=== PATIENT | female | born 1985 | race Caucasian/White ===

== ENCOUNTER 2018-04-02 08:08 | Observation (INO) | payer OTHER ==
[2018-04-02] MEDS ORDERED: ONDANSETRON ODT 8 MG TAB SL ONE (08:24)
[2018-04-02] MEDS ORDERED: SODIUM CHLORIDE 0.9% 1000ML 1,000 ML IVS ONE (08:24)
[2018-04-02] MEDS ORDERED: KETOROLAC TROMETHAMINE INJ 30 MG/ML VIAL IM ONE (08:26)
[2018-04-02] MEDS ORDERED: MORPHINE SULFATE INJ 10 MG/ML VIAL IV ONE ×2 (09:42→12:34)
--- NOTE | 2018-04-02 09:50 | RAD ---
EXAM: KUB CLINICAL INDICATION: 32-year-old female with flank pain and dysuria. Single supine view of the abdomen was obtained. COMPARISON: None. FINDINGS: Gas is seen within normal caliber small and large bowel. No free air is identified. There are no abnormal calcifications. The osseous structures are within normal limits. Few pelvic calcifications are noted which may represent phleboliths. The possibility of calculus cannot be completely excluded. IMPRESSION: 1. Nonspecific abdominal bowel gas pattern within normal limits. 2. Calculi present within the dependent pelvis may be secondary to phleboliths, however the possibility of calculus cannot be excluded. Electronically signed by: Kathie Webb MD 04/02/2018 9:49 AM CDT
[2018-04-02] MEDS ORDERED: NITROFURANTOIN MONOHYDRATE MAC 100 MG CAP PO ONE (11:20)
[2018-04-02] MEDS ORDERED: CIPROFLOXACIN 500 MG TAB PO ONE (11:20)
[2018-04-02] MEDS ORDERED: HYDROcodone 7.5MG/APAP 325MG 1 EA TAB PO ONE (11:58)
--- NOTE | 2018-04-02 12:24 | CT ---
EXAM DESCRIPTION: Abdoment/Pelvis w/o Contrast CLINICAL HISTORY: suspect right sided kidney stone COMPARISON: None Available TECHNIQUE: Contiguous axial images of the abdomen and pelvis were obtained followed by reconstruction images. This exam was performed according to our departmental dose-optimization program, which includes automated exposure control, adjustment of the mA and/or kV according to patient size and/or use of iterative reconstruction technique. FINDINGS: Patient is status post cholecystectomy. The right kidney demonstrates hydronephrosis due to of 2 mm stone at the distal ureter. There are other nonobstructing stones within both kidneys. Calcifications within the pelvis compatible with phleboliths. The liver, spleen, pancreas are within normal limits. Adrenal glands are within normal limits. Aorta is of normal caliber and tapering. There is no free fluid in the abdomen or pelvis. There is no bowel obstruction. There is no stranding of the mesenteric fat to suggest an inflammatory response. The appendix is within normal limits. There is no pericecal inflammation. Mild dilatation of the terminal ileum compatible a focal ileus. IMPRESSION: Right-sided hydronephrosis due to a 2 mm stone within the distal ureter. Other nonobstructing stones within both kidneys. Electronically signed by: Daniel Goldman MD 04/02/2018 12:23 PM CDT
--- NOTE | 2018-04-02 12:39 | ED.PDOC ---
History of Present Illness - General Chief Complaint: Problem Stated Complaint: R flank discomfort, dysuria Time Seen by Provider: 04/02/18 08:24 Source: patient Exam Limitations: no limitations - History of Present Illness Initial Comments: the patient's a 32-year-old female presenting to the emergency room secondary to the acute onset of pain in her right flankstarting at 545 this morning. Pain is associated with radiation down to her anterior right abdomen. She has been having some UTI symptoms last week. No fevers. She has had frequency and very mild dysuria. No blood in the urine. No history of any kidney stones. The patient did have a couple of episodes of vomiting with the pain at its worst this morning. She denies currently being on any antibiotics. Timing/Duration: 1-3 hours Severity: severe Improving Factors: nothing Worsening Factors: movement Associated Symptoms: diaphoresis, loss of appetite, nausea/vomiting Allergies/Adverse Reactions: Allergies Amoxicillin [From Augmentin] Allergy (Verified 04/02/18 08:24) Unknown Cephalexin [From Keflex] Allergy (Verified 04/02/18 08:24) Unknown Clavulanic Acid [From Augmentin] Allergy (Verified 04/02/18 08:24) Unknown Erythromycin Allergy (Verified 04/02/18 08:24) Unknown Sulfamethoxazole w/Trimethoprim [From Bactrim] Allergy (Verified 04/02/18 08:24) Unknown Home Medications: Ambulatory Orders NK [NK] 04/02/18 Review of Systems - Review of Systems Constitutional: States: malaise EENTM: States: no symptoms reported Respiratory: States: no symptoms reported Cardiology: States: no symptoms reported Gastrointestinal/Abdominal: States: abdominal pain, nausea, vomiting Genitourinary: States: dysuria, frequency, pain Musculoskeletal: States: back pain Skin: States: no symptoms reported Neurological: States: no symptoms reported Endocrine: States: no symptoms reported All other Systems: No Change from Baseline Past Medical History (General) - Patient Medical History Hx Stroke: No Hx Asthma: Yes Hx Congestive Heart Failure: No Hx Diabetes: No - Vaccination History Hx Influenza Vaccination: Yes - 2017 Hx Pneumococcal Vaccination: No - Social History Hx Tobacco Use: No - Female History Patient is a Female of Child Bearing Age (10 -59 yrs old): Yes Patient : No Family Medical History - Family History Mother Living Status: Still Living Hx Family Congestive Heart Failure: Yes Hx Family Hypertension: Yes Hx Cardiac Disease: Yes Hx Family;Other: Mom has COPD Physical Exam - Physical Exam General Appearance: Alert, Restless, Other - the patient is obviously very uncomfortable Eye Exam: bilateral normal Ears, Nose, Throat: hearing grossly normal, normal ENT inspection Neck: full range of motion, supple Respiratory: lungs clear, normal breath sounds, no respiratory distress, no accessory muscle use Cardiovascular/Chest: normal peripheral pulses, regular rate, rhythm, no edema Peripheral Pulses: radial,right: 2+, radial,left: 2+, dorsalis pedis,right: 2+, dorsalis pedis,left: 2+ Gastrointestinal/Abdominal: non tender, soft Rectal Exam: deferred Back Exam: no vertebral tenderness, CVA tenderness (R) Extremity: non-tender, normal inspection, no pedal edema, normal capillary refill Neurologic: supervisor roving II-XII nml as tested, alert, normal mood/affect, oriented x 3 Skin Exam: normal color - multiple tattoos Comments: Vital Signs - 24 hr 04/02/18 04/02/18 08:15 12:03 Temperature 98.7 F Pulse Rate [ 75 86 Right Radial] Respiratory 20 20 Rate Blood Pressure 108/52 124/75 [Right Arm] O2 Sat by Pulse 99 Oximetry Progress - Progress Progress: 04/02/18 12:40 the patient's a 32-year-old female presenting with a urinary tract infection as well as a concurrent right sided ureterolithiasis causing some hydronephrosis. I believe she simply started passing the stone early this morning. I do not believe that she has pyelonephritis yet. The patient has received a dose of oral ciprofloxacin and Macrobid. Urine cultures being performed. She has received a liter of IV fluids. She is requiring some fairly significant pain medications to help with pain control, nausea control and passage of the stone. I'm going to give her a dose of valium as well. She has had a dose of Toradol as well. Admit for continued hydration, continued antibiotics, and continued pain control. If the patient fails to pass the stone over the next 24 hours then it may be worth a referral for lithotripsy given the background of infection. No evidence of sepsis at this time. CBC and CMP are pending at this time.Flomax is being avoided for the potential of a sulfonamide reaction. This probability however is low. 04/02/18 12:43 04/02/18 12:44 - Results/Orders Results/Orders: 04/02/18 09:38 URINE CULTURE W/COLONY COUNT Stat 04/02/18 12:37 COMPLETE METABOLIC PROFILE Stat CBC (AUTOMATED) W/AUTO DIFF Stat Laboratory Results - last 24 hr 04/02/18 04/02/18 05:00 09:38 Serum HCG, Qual Negative Urine Color [place] H Urine Appearance Sl cloudy Urine pH 5.0 Ur Specific [place] 1.020 Urine Protein >=300 H Urine Glucose (UA) 250 H Urine Ketones 15 H Urine Blood Moderate H Urine Nitrite Positive H Urine Bilirubin Small H Urine Urobilinogen >= 8.0 H Ur Leukocyte Esterase Large H Urine RBC Tntc H Urine WBC Obscured by rbc's H Ur Epithelial Cells 0 Urine Bacteria Obscured by rbc's H Urine HCG, Qual Cancelled Departure - Departure Clinical Impression: Ureterolithiasis Urinary tract infection Qualifiers: Urinary tract infection type: acute cystitis Hematuria presence: with hematuria Qualified Code(s): N30.01 - Acute cystitis with hematuria Hydronephrosis Qualifiers: Hydronephrosis type: with ureteral calculous obstruction Qualified Code(s): N13.2 - Hydronephrosis with renal and ureteral calculous obstruction Disposition: Admit Patient Condition: Fair Departure Forms: ED Discharge - Pt. Copy, Patient Portal Self Enrollment Referrals: Lobito Rosales MD [Primary Care Provider] - 1-2 Weeks Home Medications: Ambulatory Orders NK [NK] 04/02/18 Decision To Admit - Decistion To Admit Decision to Admit Reason: Medical Nature Decision to Admit Date: 04/02/18 Decision to Admit Time: 12:45
[2018-04-02] MEDS ORDERED: diazePAM 5 MG TAB PO ONE (12:42)
--- NOTE | 2018-04-02 13:13 | HP ---
SUPERVISING PHYSICIAN: Chapo Ruiz M.D. CHIEF COMPLAINT: Right flank pain and dysuria. HISTORY OF PRESENT ILLNESS: Ms. Fuentes is a 32 year-old female patient that presented to the Emergency Room today due to the acute onset of pain in her right flank around 5:45 this morning. She noted that the pain was radiating down into her anterior right abdomen. She felt like she had been having urinary tract infection symptoms over the last 3 or 4 days and had been taking Azo for some mild dysuria and increased frequency. She denied any rikki blood in her urine and has never passed a kidney stone that she knows of. Initially in the Emergency Room she did have an episode of emesis associated with severe pain. A CT of her abdomen and pelvis without contrast indicated she had a right sided hydronephrosis due to a 2 mm stone within the distal ureter. There was also mentioned nonobstructing stones within both kidneys. She was given fluids but was unable to obtain any significant pain relief without IV morphine. Given that she had a urinary tract infection, she was started on ciprofloxacin and Macrobid in the E. R. initially. She was going to be treated as an outpatient, however, the patient was unable to get any significant pain relief without any IV medications to include morphine, and such is now going to be placed in Observation for medical expulsive therapy along with pain control. The patient is placed in Observation in stable condition. PAST MEDICAL HISTORY: 1. Asthma. 2. Seasonal allergies. 3. Migraines. 4. Insomnia. PAST SURGICAL HISTORY: 1. Cholecystectomy. 2. Umbilical hernia repair. CURRENT MEDICATIONS: ALLERGIES: MULTIPLE ALLERGIES LISTED TO INCLUDE AMOXICILLIN, KEFLEX, ERYTHROMYCIN AND BACTRIM. FAMILY HISTORY: Significant for congestive heart failure and hypertension. 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 She is and has 3 children. She does not smoke and rarely drinks alcohol. Denies any illicit drug use. REVIEW OF SYSTEMS: CONSTITUTIONAL: Denies any fevers, chills, general malaise. HEENT: Denies any headaches, vision changes, nasal congestion, sore throat or ear aches. RESPIRATORY: Denies any shortness of breath, wheezing or coughing. CARDIOVASCULAR: Denies any chest pains, palpitations, syncopal episodes or peripheral edema. GASTROINTESTINAL: Abdominal pain, nausea and vomiting as noted in History of Present Illness. MUSCULOSKELETAL: Positive for CVA tenderness on the right side. NEUROLOGIC: She denies any seizures, ataxia or other neurological deficits. PHYSICAL EXAMINATION: VITAL SIGNS: Temperature 98.8, pulse 91, blood pressure 111/65, respirations 20 , satting 97% on room air. Admission weight 50.6 kg. GENERAL: On admission to the Medical/Surgical floor, the patient appears to be comfortable in no acute distress. She is alert. HEENT: Tympanic membranes are clear bilaterally. Oropharynx is pink and moist without any lesions. The patient has a nasal ring in place. NECK: Supple, non-tender with full range of motion. No jugular venous distention. CHEST: Lungs are clear to auscultation without any rhonchi, wheezing or rales. CARDIOVASCULAR: Regular rate and rhythm without appreciable murmurs, gallops, or rubs. ABDOMEN: Soft with no rebound tenderness. Positive bowel sounds. BACK: No vertebral tenderness. There is noted CVA tenderness on the right side. EXTREMITIES: No clubbing, cyanosis or edema. NEUROLOGIC: Cranial nerves II-XII are grossly intact. She is alert and oriented times three. INTEGUMENT: Multiple tattoos noted to the upper extremities. LABORATORY: CBC shows a normal white count at 9,900, hemoglobin 13.3, hematocrit 40.0, platelet count 246,000. Differential does show an early left shift. Chemistries show normal electrolytes with BUN 15, creatinine 0.82. Liver functions are all within normal limits. Serum HCG was negative. Urinalysis showed orange urine secondary to Azo. Microscopic revealed large too numerous to count RBCs and WBCs are obscured by RBCs as well as bacteria. The dipstick was chemically altered secondary to Azo. MICROBIOLOGY: Urine culture is pending. RADIOLOGY: Initially she had a KUB in the E. R. which showed per radiology interpretation nonspecific abdominal bowel gas pattern within normal limits. There were calculi present within the dependent pelvis which could be secondary to phleboliths, however the possibility of calculus could not be ruled out. This was followed-up with a CT of the abdomen and pelvis without contrast and per radiology interpretation there was note of right sided hydronephrosis due to a 2 mm stone within the distal ureter as well as other nonobstructing stones within both kidneys. Please see that report for full details. ASSESSMENT: 1. Right sided ureteral lithiasis with hydronephrosis due to a 2 mm stone within the distal ureter. 2. Acute cystitis with no obvious signs of pyelonephritis, not having previously been on antibiotic therapy. 3. Asthma. 4. Seasonal allergies. 5. Insomnia. 6. Migraines. PLAN: The patient is going to be placed in Observation for medical expulsive therapy. Will start on some IV fluids with D5 half normal saline with 20 of potassium at 125. I will go ahead and give her Toradol scheduled 15 mg every 6 hours. She was started on ciprofloxacin and Macrobid. I will continue with ciprofloxacin 500 mg b.i.d. with anticipation of hopefully discharging tomorrow and culture is pending. She does have an allergy to sulfonamides but is not sure of the reaction and it was noted as a young child. Will try Flomax and watch this cautiously as consideration for cross reactivity. Will also start her on Pyridium at 200 mg t.i.d. She will be given pain management with again Toradol and morphine as well as antiemetics to include Zofran and Phenergan as needed. Will strain her urine in efforts to catch the stone. Should we be successful, the stone will be sent for analysis. Will anticipate discharge tomorrow once the patient has good pain control on oral medication. Should she continue to show worsening symptoms, certainly will consider consultation with Urology, but given that she has a less than 2 mm stone and it is near passage, will continue to medically manage her conservatively with medical expulsive therapy. Until clinically improved, will continue to monitor and treat appropriately. Once discharged she will need followup with Dr. Rosales, her primary care provider. #[id number] [facility]
[2018-04-02] MEDS ORDERED: ACETAMINOPHEN 325 MG TAB PO PRN (13:35)
[2018-04-02] MEDS ORDERED: TAMSULOSIN 0.4 MG CAP PO ONE (13:40)
[2018-04-02] MEDS ORDERED: IV SET AND CAP CHANGE INJ INJ SCH (14:00)
[2018-04-02] MEDS ORDERED: KETOROLAC TROMETHAMINE INJ 30 MG/ML VIAL IV SCH (14:00)
[2018-04-02] MEDS: KCL 20MEQ/D5 1/2NS 1,000 ML IVS PRN ×2 (14:11→23:03)
[2018-04-02] MEDS: PHENAZOPYRIDINE HCL 200 MG TAB PO SCH ×3 (14:15→20:49)
[2018-04-02] MEDS: MORPHINE SULFATE INJ 10 MG/ML VIAL IV PRN (15:27)
[2018-04-02] MEDS: ONDANSETRON INJ 4 MG/2 ML VIAL IV PRN (16:42)
[2018-04-02] MEDS ORDERED: CIPROFLOXACIN 500 MG TAB ONE (18:48)
[2018-04-02] MEDS: KETOROLAC TROMETHAMINE INJ 30 MG/ML VIAL IV SCH (19:37)
[2018-04-02] MEDS: CIPROFLOXACIN 500 MG TAB PO SCH (20:49)
--- NOTE | 2018-04-02 23:44 | PCM.CORE ---
Physician DVT/VTE - Nurse DVT Assessment & Total For Women Only. Each Risk Factor Represents 1 Point: Oral Contraceptions or hormone replacement therapy DVT Assessment Score: 1 - 0-1 Low Risk Treatments: Early Ambulation, Low Risk no further treatment or intervention needed
[2018-04-03] MEDS: KETOROLAC TROMETHAMINE INJ 30 MG/ML VIAL IV SCH ×4 (01:32→20:10)
[2018-04-03] MEDS: SODIUM CHLORIDE 0.9% (FLUSH) 10 ML SYG IV PRN ×3 (01:32→20:09)
[2018-04-03] MEDS: KCL 20MEQ/D5 1/2NS 1,000 ML IVS PRN ×3 (07:26→23:50)
[2018-04-03] MEDS: PHENAZOPYRIDINE HCL 200 MG TAB PO SCH ×3 (09:53→20:30)
[2018-04-03] MEDS: CIPROFLOXACIN 500 MG TAB PO SCH ×2 (09:54→20:30)
[2018-04-03] MEDS: BIFIDOBACTERIUM INFANTIS 4 MG CAP PO SCH (09:54)
[2018-04-03] MEDS: MORPHINE SULFATE INJ 10 MG/ML VIAL IV PRN ×3 (09:54→13:56)
[2018-04-03] MEDS ORDERED: KETOROLAC TROMETHAMINE INJ 30 MG/ML VIAL IV SCH (11:00)
[2018-04-03] MEDS ORDERED: ACETAMINOPHEN-CAFF-BUTALBITAL 1 EA TAB PO PRN (11:23)
[2018-04-03] MEDS: TAMSULOSIN 0.4 MG CAP PO SCH (11:26)
[2018-04-03] MEDS ORDERED: PANTOPRAZOLE SODIUM IV 40 MG VIAL ONE (11:29)
[2018-04-03] MEDS ORDERED: PANTOPRAZOLE SODIUM IV 40 MG VIAL IV SCH (12:00)
[2018-04-03] MEDS: ONDANSETRON INJ 4 MG/2 ML VIAL IV PRN (16:31)
--- NOTE | 2018-04-03 23:02 | PN ---
DATE: 04/03/18 SUPERVISING PHYSICIAN: Chapo Ruiz M.D. SUBJECTIVE: The patient is resting in bed. Notes that she still has a significant amount of pain and is requiring morphine in addition to Toradol. She notes that the pain has now moved down further into her pelvic area. She has not had any nausea or vomiting and has remained afebrile. The patient has had a mild headache but respond to Tylenol and Fioricet. OBJECTIVE: VITAL SIGNS: Temperature 96.3, pulse 83, blood pressure 104/70, respirations 16, satting 96% on room air. Weight 50.7 kg. CHEST: Lungs are clear to auscultation. HEART: Regular rate and rhythm. ABDOMEN: Soft, non- tender with positive bowel sounds. BACK: She has no CVA tenderness on the right now but notes that the pain is down into her pelvic area. ABDOMEN: Soft but non-tender on palpation. Bowel sounds are present. EXTREMITIES: No clubbing, cyanosis or edema. NEUROLOGIC: She is alert and oriented times three. No laboratory was repeated today. ASSESSMENT: 1. Right sided ureteral lithiasis with hydronephrosis due to a 2 mm stone within the distal ureter showing slow clinical response to medical expulsive therapy and requiring additional ongoing IV pain management. 2. Acute cystitis with no signs of pyelonephritis and not previously being on antibiotics with the patient having a long history of multiple urinary tract infections currently on ciprofloxacin. 3. Asthma. 4. Seasonal allergies. 5. Insomnia. 6. Migraines. PLAN: The patient will continue with current plan with IV fluids, Flomax, morphine, Zofran and Pyridium in efforts to further moving the stone. She has been encouraged to get up and walk around as much as possible. Should the stone move and her pain decrease to a degree that she can go home, hopefully will be able to discharge either later today or tomorrow morning. Should she continue to show a significant amount of pain despite current therapy, will need to repeat labs in the morning to include at least a CBC and a BMP to recheck renal function. Will continue to monitor her output closely. I will keep her on Toradol 30 mg every 6 hours scheduled for another 4 doses. Will await culture results to further target antibiotic therapy. Currently she will remain on ciprofloxacin until that sensitivity report is available. Until discharge, will continue to monitor and treat appropriately. Once discharged, she will need close clinical followup with her primary doctor who is Dr. Rosales. #[id number] [facility]
[2018-04-04] MEDS: KETOROLAC TROMETHAMINE INJ 30 MG/ML VIAL IV SCH ×2 (01:51→07:33)
[2018-04-04] MEDS: SODIUM CHLORIDE 0.9% (FLUSH) 10 ML SYG IV PRN (01:51)
[2018-04-04 06:09] VITALS: TEMP 98.4
[2018-04-04] MEDS ORDERED: PANTOPRAZOLE SODIUM IV 40 MG VIAL IV SCH ×2 (06:30→10:47)
[2018-04-04] MEDS: KCL 20MEQ/D5 1/2NS 1,000 ML IVS PRN (08:24)
[2018-04-04] MEDS: PHENAZOPYRIDINE HCL 200 MG TAB PO SCH (08:25)
[2018-04-04] MEDS: BIFIDOBACTERIUM INFANTIS 4 MG CAP PO SCH (08:25)
[2018-04-04] MEDS: TAMSULOSIN 0.4 MG CAP PO SCH (08:25)
[2018-04-04] MEDS: CIPROFLOXACIN 500 MG TAB PO SCH (08:25)
[2018-04-04] MEDS ORDERED: HYDROcodone 5MG/APAP 325MG 1 EA TAB ONE (09:43)
[2018-04-04] MEDS ORDERED: HYDROcodone 5MG/APAP 325MG 1 EA TAB PO ONE (09:47)
[2018-04-04 10:31] VITALS: BP 102/69; O2SAT 97
--- NOTE | 2018-04-04 14:09 | DS ---
SUPERVISING PHYSICIAN: Orlando Cornell MD ADMISSION DIAGNOSIS: 1. Right sided ureteral stone with mild hydronephrosis. 2. Acute cystitis with no sign of pyelonephritis. 3. Asthma. 4. Seasonal allergies. 5. Insomnia. 6. Migraines. DISCHARGE DIAGNOSIS: 1. Right sided ureteral stone with mild hydronephrosis. 2. Acute cystitis with no sign of pyelonephritis. 3. Asthma. 4. Seasonal allergies. 5. Insomnia. 6. Migraines. HOSPITAL COURSE: This is a 32-year-old female who presented to the Emergency Room with acute onset of pain in her right flank the morning of admission. She had never had that kind of pain before. It was radiating down to the anterior right abdomen. She has had a history of frequent urinary tract infections and had symptoms of urinary tract infection for the last four days, but never had the flank pain that she had on admission. She was seen in the Emergency Room and had a CT of the abdomen and pelvis which revealed a 2 mm stone in the distal ureter with some mild right sided hydronephrosis. There were multiple stones that were nonobstructing in both kidneys as well. She was given IV fluids and pain medications, but the pain medications were not giving significant relief and she was referred for admission. Once admitted, she was placed on Toradol, Flomax as well as Cipro. Over the next 48 hours, she did improve though still was having some pain. She did not feel like she had passed the stone as of yet, but the pain was tolerable and I got a prescription from Dr. Ruiz for [place] p.r.n. for pain. She was free of any fever and her labs improved, therefore, she was discharged in stable condition on 04/04/18. DIET: As per usual diet. ACTIVITY: As tolerated. FOLLOWUP: Followup with Dr. Rosales in one to two weeks. DISCHARGE MEDICATIONS: 1. [place] 5/325 every 6 hours p.r.n. for pain, 5 days worth. 2. Macrobid 100 mg b.i.d. 3. Flomax 0.4 mg p.o. daily for 10 days. [facility][id number] [facility]
[2018-04-05] MEDS ORDERED: PANTOPRAZOLE SODIUM TAB 40 MG PO SCH (06:30)
== END 2018-04-04 10:37 | disposition home or self-care (01) ==
LOC: ER 08:08 → MS 13:11 → INTOOBSV 13:11
PROVIDERS: ADMIT Nurse Practitioner Family; ATTEND Nurse Practitioner
DX: N13.2 Hydronephrosis with renal and ureteral calculous obstruction (principal); N30.01 Acute cystitis with hematuria; J45.909 Unspecified asthma, uncomplicated; G47.00 Insomnia, unspecified; G43.909 Migraine, unspecified, not intractable, without status migrainosus; R11.2 Nausea with vomiting, unspecified; Z88.0 Allergy status to penicillin; Z88.3 Allergy status to other anti-infective agents
CPT/HCPCS: 96375 ×2; 96376 ×4; J1885 ×9; J2270 ×6; J2405 ×2; J7030; 80048; 80053; 87086; 36415 ×2; 87186; 81001; 85025 ×2; 84703; 87088 ×2; 74018; 74176; 99285; 96361; 96372; 96374

== ENCOUNTER 2018-04-07 23:15 | Emergency (ER) | payer OTHER ==
[2018-04-07 23:38] VITALS: O2SAT 98
[2018-04-08] MEDS ORDERED: KETOROLAC TROMETHAMINE INJ 30 MG/ML VIAL ONE (00:01)
--- NOTE | 2018-04-08 00:05 | ED.PDOC ---
History of Present Illness - General Chief Complaint: Problem Stated Complaint: Rt Flank Pain Time Seen by Provider: 04/08/18 00:05 Source: patient Exam Limitations: no limitations - History of Present Illness Initial Comments: Maki Fuentes 32 y/o female diagnosed with right mid ureteral calculus 06 April 2018 with flankpain and was sent home after pain went away advised TCB if pain recurs and had again constant sharp right flank pain tonight. Timing/Duration: this evening Quality: sharpness Onset Location: right flank Radiation: none Activites at Onset: none Prior abdominal problems: similar symptoms Sexual intercourse history: single partner Improving Factors: nothing Worsening Factors: nothing Associated Symptoms: other - see hpi Allergies/Adverse Reactions: Allergies Amoxicillin [From Augmentin] Allergy (Verified 04/02/18 08:24) Unknown Cephalexin [From Keflex] Allergy (Verified 04/02/18 08:24) Unknown Clavulanic Acid [From Augmentin] Allergy (Verified 04/02/18 08:24) Unknown Erythromycin Allergy (Verified 04/02/18 08:24) Unknown Sulfamethoxazole w/Trimethoprim [From Bactrim] Allergy (Verified 04/02/18 08:24) Unknown Home Medications: Ambulatory Orders HYDROcodone 5MG/APAP 325MG [[place] 5/325] 1 ea PO Q6H 5 Days #20 tab 04/04/18 Nitrofurantoin Monohydrate Mac [Macrobid] 100 mg PO BID 7 Days #14 capsule 04/04 Tamsulosin [Flomax] 0.4 mg PO DAILY #10 cap 04/04/18 Review of Systems - Review of Systems Constitutional: States: no symptoms reported EENTM: States: no symptoms reported Respiratory: States: no symptoms reported Cardiology: States: no symptoms reported Gastrointestinal/Abdominal: States: no symptoms reported Genitourinary: States: see HPI All other Systems: Reviewed and Negative, No Change from Baseline Past Medical History (General) - Patient Medical History Hx Seizures: No Hx Stroke: No Hx Dementia: No Hx Asthma: Yes Hx of COPD: No Hx Cardiac Disorders: No Hx Congestive Heart Failure: No Hx Pacemaker: No Hx Hypertension: No Hx Thyroid Disease: No Hx Diabetes: No Hx Gastroesophageal Reflux: No Hx Renal Disease: No Hx Cancer: No Hx of HIV: No Hx Hepatitis C: No Hx MRSA: Yes MRSA Source:: Boil Surgical History: cholecystectomy, other - Vaccination History Hx Tetanus, Diphtheria Vaccination: Yes Hx Influenza Vaccination: Yes Hx Pneumococcal Vaccination: No Immunizations Up to Date: Yes - Social History Hx Tobacco Use: No Hx Alcohol Use: No Hx Substance Use: No Hx Substance Use Treatment: No Hx Depression: No Feels Threatened In Home Enviroment: No Feels Threatened In a Relationship: No Hx Physical Abuse: No Hx Emotional Abuse: No Hx Suspected Abuse: No - Activities of Daily Living Hospice Agency (if applicable):: None - Female History Patient is a Female of Child Bearing Age (10 -59 yrs old): Yes Hx Last Menstrual Period: 03/24/18 Patient : No - Triage Comment ED Triage Comment: Pt states that she has rt flank pain that has been ongoing since Wednesday morning and is getting worse. Pt confirms blood in urine and states she was diagnosed with a UTI and kidney stones on Wednesday morning. Pt taking [place] 5/325 for pain at home and states it is not helping at this time. Family Medical History - Family History Mother Living Status: Still Living Hx Family Congestive Heart Failure: Yes Hx Family Hypertension: Yes Hx Cardiac Disease: Yes Hx Family;Other: Mom has COPD Physical Exam - Physical Exam General Appearance: Agitated, Anxious, No apparent distress Eyes, Ears, Nose, Throat Exam: normal ENT inspection Neck: supple Cardiovascular/Respiratory: regular rate, rhythm, no M/R/G, normal peripheral pulses, normal breath sounds Gastrointestinal/Abdominal: normal bowel sounds, non tender, soft, no organomegaly Back Exam: normal inspection, no vertebral tenderness, CVA tenderness (R) Extremity: no pedal edema, no calf tenderness Neurologic: alert, oriented x 3 Skin Exam: normal color, warm/dry Lymphatic: no adenopathy Progress - Progress Progress: 04/08/18 00:24 Vital Signs - 8 hr 04/07/18 23:32 Temperature 99.8 F H Pulse Rate [ 89 Monitor] Respiratory 18 Rate Blood Pressure 122/77 [Right Arm] O2 Sat by Pulse 98 Oximetry 04/08/18 02:03 D/W Dr. Zenon Elise-Urologist -[place] will see patient in am at his office 08 April 2018 04/08/18 02:04 - Results/Orders Results/Orders: 04/08/18 00:20 Hold Metformin x 48Hrs [id number] 04/08/18 01:06 Sodium Chloride 0.9% 1000ML [Ns 1000 ml] 1,000 ml IVS ONCE 04/08/18 01:16 URINALYSIS Stat 04/08/18 01:53 HYDROcodone 7.5MG/APAP 325MG [[place] 7.5/325] 1 ea PO ONCE ONE Ketorolac Tromethamine Inj [Toradol Inj] 30 mg IM ONCE ONE Laboratory Results - last 24 hr 04/08/18 04/08/18 04/08/18 00:06 00:06 00:06 WBC 10.3 RBC 4.56 Hgb 13.3 Hct 39.6 MCV 86.9 MCH 29.2 MCHC 33.6 RDW 13.8 Plt Count 239 MPV 7.7 Absolute Neuts (auto) 8.10 H Absolute Lymphs (auto) 1.70 Absolute Monos (auto) 0.50 Absolute Eos (auto) 0.00 Absolute Basos (auto) 0.00 Neutrophils % 78.3 H Lymphocytes % 16.0 L Monocytes % 5.1 Eosinophils % 0.3 L Basophils % 0.3 Sodium 139 Potassium 4.5 Chloride 106 Carbon Dioxide 25 Anion Gap 12.5 BUN 21 H Creatinine 0.82 BUN/Creatinine Ratio 25.6 H Random Glucose 102 Serum Osmolality 280.7 Calcium 9.1 Total Bilirubin 0.4 AST 27 ALT 40 Alkaline Phosphatase 49 Serum Total Protein 7.6 Albumin 4.6 Globulin 3.0 Albumin/Globulin Ratio 1.5 Urine HCG, Qual Urine Opiates Screen Negative Urine Barbiturates Negative Ur Phencyclidine Scrn Negative U Amphetamin/Meth Scrn Negative U Benzodiazepines Scrn Positive H U Cocaine Metab Screen Negative U Cannabinoids Screen Negative 04/08/18 00:06 WBC RBC Hgb Hct MCV MCH MCHC RDW Plt Count MPV Absolute Neuts (auto) Absolute Lymphs (auto) Absolute Monos (auto) Absolute Eos (auto) Absolute Basos (auto) Neutrophils % Lymphocytes % Monocytes % Eosinophils % Basophils % Sodium Potassium Chloride Carbon Dioxide Anion Gap BUN Creatinine BUN/Creatinine Ratio Random Glucose Serum Osmolality Calcium Total Bilirubin AST ALT Alkaline Phosphatase Serum Total Protein Albumin Globulin Albumin/Globulin Ratio Urine HCG, Qual Negative Urine Opiates Screen Urine Barbiturates Ur Phencyclidine Scrn U Amphetamin/Meth Scrn U Benzodiazepines Scrn U Cocaine Metab Screen U Cannabinoids Screen - EKG/XRAY/CT CT Ordered: Yes - Abd/P-right ureteral calculus UVJ same position CT Interpretation Call Back: No Departure - Departure Clinical Impression: Right distal ureteral calculus, Acute flank pain Time of Disposition: 02:56 Disposition: Discharge to Home or Self Care Condition: Fair Departure Forms: ED Discharge - Pt. Copy, Patient Portal Self Enrollment Diet: other - Drink extra fluids Referrals: Lobito Rosales MD [Primary Care Provider] - 1-2 Weeks Home Medications: Ambulatory Orders HYDROcodone 5MG/APAP 325MG [[place] 5/325] 1 ea PO Q6H 5 Days #20 tab 04/04/18 Nitrofurantoin Monohydrate Mac [Macrobid] 100 mg PO BID 7 Days #14 capsule 04/04 Tamsulosin [Flomax] 0.4 mg PO DAILY #10 cap 04/04/18 Additional Instructions: Call up Urologist Dr. Arroyo office in the morning 08 April 2018 [facility]-[address] [place] [address]. [place], [place] Conor. [address]
[2018-04-08] MEDS ORDERED: LACTATED RINGERS 1,000 ML IVS ONE (00:06)
[2018-04-08] MEDS ORDERED: KETOROLAC TROMETHAMINE INJ 30 MG/ML VIAL IV ONE (00:06)
[2018-04-08] MEDS ORDERED: HYDROcodone 7.5MG/APAP 325MG 1 EA TAB PO ONE ×2 (00:18→01:53)
[2018-04-08] MEDS ORDERED: TAMSULOSIN 0.4 MG CAP PO ONE (00:18)
[2018-04-08] MEDS ORDERED: MORPHINE SULFATE INJ 10 MG/ML VIAL IV ONE ×2 (00:18→01:06)
[2018-04-08] MEDS ORDERED: PROMETHAZINE HCL INJ 25 MG/ML VIAL IM ONE (00:21)
[2018-04-08] MEDS ORDERED: SODIUM CHLORIDE 0.9% 1000ML 1,000 ML IVS ONE (01:06)
--- NOTE | 2018-04-08 01:23 | CT ---
CT abdomen and pelvis with contrast on 04/08/2018 CLINICAL INDICATION: Right-sided back pain TECHNIQUE: Multiple axial images are obtained throughout the abdomen and pelvis following the administration of IV contrast, 100 mL of Optiray 320 contrast was administered intravenously without complication. This exam was performed according to our departmental dose-optimization program, which includes automated exposure control, adjustment of the mA and/or kV according to patient size and/or use of iterative reconstruction technique. Total DLP is 318.71 mGy*cm. COMPARISON: 04/02/2018 FINDINGS: Abdomen: The lung bases are clear. There is mild to moderate right hydronephrosis and hydroureter to the level of a 2-3 mm right distal ureteral stone just above the right UVJ and unchanged when compared with the recent exam. Small bilateral renal cysts are noted. There is a delayed right nephrogram related to the obstruction. There are a few other very small nonobstructing right renal stones again noted. The solid abdominal organs are otherwise unremarkable. There is no abdominal adenopathy. There is no free fluid or free air within the abdomen. The abdominal portion of the GI tract is unremarkable. Pelvis: The endometrium is prominent and appears to measure up to 2.2 cm in thickness. Recommend correlation with pelvic ultrasound. Pelvic organs otherwise appear unremarkable by CT. There is no pelvic adenopathy. The pelvic portion of the GI tract including the appendix is unremarkable. No bony abnormality is noted. IMPRESSION: 1. No change in positioning of a 2-3 mm obstructing right distal ureteral stone. 2. Right nephrolithiasis. 3. Thickened endometrium, recommend follow-up pelvic ultrasound. Electronically signed by: Caio Cueva 04/08/2018 1:22 AM CDT
[2018-04-08] MEDS ORDERED: KETOROLAC TROMETHAMINE INJ 30 MG/ML VIAL IM ONE (01:53)
[2018-04-08] MEDS ORDERED: HYDROCOD/APAP 10/325 (ER DISP) # 3 tablets PO ONE (03:06)
[2018-04-08 03:19] VITALS: BP 120/75; TEMP 98.7
== END 2018-04-08 03:19 | disposition home or self-care (01) ==
LOC: ER 23:15
DX: N13.2 Hydronephrosis with renal and ureteral calculous obstruction (principal); J45.909 Unspecified asthma, uncomplicated; N39.0 Urinary tract infection, site not specified
CPT/HCPCS: 36415; 74177; 80053; 80307; 81001; 81025; 85025; J1885; J2270; J2550; J7030; J7120

== ENCOUNTER → 2018-12-02 | Outpatient (CLI) | payer OTHER ==
--- NOTE | 2018-12-02 13:56 | MRI ---
EXAM DESCRIPTION: Lumbar Spine w/o Contrast : Magnetic Resonance Imaging. CLINICAL HISTORY: LOW BACK PAIN COMPARISON: LUMBAR TECHNIQUE: Multiplanar, multiple standard sequences, non contrast MRI, lumbar spine. FINDINGS: Mild narrowing of the bony canal from L2-3 down to L5-S1 by congenitally shortened pedicles. No abnormal marrow edema. No mass in the spinal canal. No significant disc bulging or arthrosis hypertrophy of the posterior elements. L5-S1: Trace posterior bulge of the L5-S1 disc with normal signal and disc space preserved. Mild canal narrowing. Posterior elements unremarkable. Bilateral foramina are patent. L4-5: Normal signal in the disc and disc space preserved. No bulging. Posterior elements are unremarkable. No bony canal narrowing. Bilateral foramina are patent. L3-4: Normal signal in the disc and disc space preserved. No bulging. Posterior elements unremarkable. Bony canal narrowing. Bilateral foramina are patent. L2-3: Normal signal in the disc and disc space preserved. Posterior elements unremarkable. Bony canal narrowing. Bilateral foramina are patent. L1-2: Normal signal in the disc and disc space preserved. No bulging. Posterior elements unremarkable. Canal and bilateral foramina are patent. T12-L1: Normal signal in the disc with disc space preserved. Posterior elements unremarkable. Canal and foramina are patent. Circumscribed hyperintense T1 and T2 signal in the superior right lateral aspect of the L1 vertebral body, hypointense signal on inversion recovery. Consistent with a hemangioma. Spine is relatively straightened above the L3-4 disc space. Paravertebral soft tissues unremarkable. Normal marrow signal in the remaining vertebral bodies and the posterior elements. Vertebral bodies are not compressed at any level. IMPRESSION: 1. Mild canal narrowing L2-3 down to L5-S1, almost completely due to bony diameter of the canal from congenitally shortened pedicles. Normal marrow signal in the bony canal at every level. 2. Trace posterior bulge of the L5-S1 disc. Electronically signed by: Jonathan Mckeon MD 12/02/2018 1:54 PM [employer]
== END ==
LOC: MRI 08:55
PROVIDERS: ATTEND Emergency Medicine
DX: M54.5 Low back pain (principal); M51.87 Other intervertebral disc disorders, lumbosacral region

== ENCOUNTER 2020-12-31 18:40 | Emergency (ER) | payer OTHER ==
--- NOTE | 2020-12-31 19:20 | RAD ---
EXAM DESCRIPTION: Hand,Left 3 Views CLINICAL HISTORY: 35 years Female, injury COMPARISON: None. FINDINGS/IMPRESSION: Fracture of the fourth metacarpal. No dislocation. Joint spaces are preserved. Mild dorsal hand swelling Electronically signed by: Myles Lainez DO 12/31/2020 7:19 PM [facility]
--- NOTE | 2020-12-31 19:21 | ED.PDOC ---
History of Present Illness - General Chief Complaint: Upper Extremity Injury Stated Complaint: left hand injury Time Seen by Provider: 12/31/20 19:17 Source: patient, RN notes reviewed Exam Limitations: no limitations - History of Present Illness Initial Comments: The patient is a 35 year old with no significant past medical history who presents with left hand pain. She states that she was walking her dog with the leash wrapped around her hand and when her dog saw another animal and ran it pulled her finger. She complains of diffuse hand pain, worse at the base of the 4th metacarpal which has ulnar deviation. No numbness or tingling. No other complaints at this time. l Allergies/Adverse Reactions: Allergies Amoxicillin [From Augmentin] Allergy (Verified 12/31/20 18:52) Unknown Cephalexin [From Keflex] Allergy (Verified 12/31/20 18:52) Unknown Clavulanic Acid [From Augmentin] Allergy (Verified 12/31/20 18:52) Unknown Erythromycin Allergy (Verified 12/31/20 18:52) Unknown Sulfamethoxazole w/Trimethoprim [From Bactrim] Allergy (Verified 12/31/20 18:52) Unknown Home Medications: Ambulatory Orders Citalopram Hydrobromide [Citalopram] 40 mg PO DAILY 03/26/19 Ketorolac Tromethamine [Toradol Tabs] 10 mg PO Q6HRS #20 tab 03/26/19 Review of Systems - Review of Systems Constitutional: States: no symptoms reported EENTM: States: no symptoms reported Respiratory: States: no symptoms reported Cardiology: States: no symptoms reported Gastrointestinal/Abdominal: States: no symptoms reported Genitourinary: States: no symptoms reported Musculoskeletal: States: joint pain, joint swelling Neurological: Denies: numbness, paresthesia, weakness Endocrine: States: no symptoms reported Hematologic/Lymphatic: States: no symptoms reported All other Systems: Reviewed and Negative Past Medical History (General) - Patient Medical History Hx Seizures: No Hx Stroke: No Hx Dementia: No Hx Asthma: Yes Hx of COPD: No Hx Cardiac Disorders: No Hx Congestive Heart Failure: No Hx Pacemaker: No Hx Hypertension: No Hx Thyroid Disease: No Hx Diabetes: No Hx Gastroesophageal Reflux: No Hx Renal Disease: No Hx Cancer: No Hx of HIV: No Hx Hepatitis C: No Hx MRSA: Yes MRSA Source:: Boil Surgical History: cholecystectomy - Vaccination History Hx Tetanus, Diphtheria Vaccination: Yes Hx Influenza Vaccination: Yes - 2018 Hx Pneumococcal Vaccination: No - Social History Hx Tobacco Use: No Hx Alcohol Use: No Hx Substance Use: No Hx Substance Use Treatment: No Hx Depression: No Hx Physical Abuse: No Hx Emotional Abuse: No Hx Suspected Abuse: No - Female History Hx Last Menstrual Period: 03/24/18 Patient : No Family Medical History - Family History Mother Living Status: Still Living Hx Family Congestive Heart Failure: Yes Hx Family Hypertension: Yes Hx Cardiac Disease: Yes Hx Family;Other: Mom has COPD Physical Exam - Physical Exam General Appearance: Alert, Anxious, Obvious distress Cardiovascular/Respiratory: regular rate, rhythm Wrist Exam: normal ROM Hand Exam: bone tenderness - base of left ring finger, deformity, soft tissue tenderness Neuro/Tendon: normal sensation, normal motor functions Mental Status: alert, oriented x 3 Skin Exam: normal color, warm/dry Progress - Progress Progress: 12/31/20 19:18 Per my read there is comminuted fracture at the base of the 4th metacarpal. Will place in ulnar gutter splint, continue outpatient pain management and follow up with orthopedics hand. Departure - Departure Clinical Impression: Metacarpal bone fracture Qualifiers: Encounter type: initial encounter Metacarpal bone: fourth Fracture type: closed Metacarpal location: base Fracture alignment: nondisplaced Laterality: left Qualified Code(s): S62.345A - Nondisplaced fracture of base of fourth metacarpal bone, left hand, initial encounter for closed fracture Time of Disposition: 19:22 Disposition: Discharge to Home or Self Care Condition: Fair Departure Forms: ED Discharge - Pt. Copy, Patient Portal Self Enrollment Instructions: DI for Arm Pain, Hand Fracture (DC) Diet: resume usual diet Activity: increase activity as tolerated Referrals: BHUPINDER JUNIOR [Primary Care Provider] - 1-2 Weeks Vikas Parish MD [Active Staff] - 1-5 Days Home Medications: Ambulatory Orders Citalopram Hydrobromide [Citalopram] 40 mg PO DAILY 03/26/19 Ketorolac Tromethamine [Toradol Tabs] 10 mg PO Q6HRS #20 tab 03/26/19 Additional Instructions: Hand Specialist: Dr. [facility] [address] [place] [address]
[2020-12-31] MEDS ORDERED: HYDROcodone 5MG/APAP 325MG 1 EA TAB PO ONE (19:31)
[2020-12-31] MEDS ORDERED: traMADol HCL 50 MG (ER DISP) # 6 TABS PO ONE (19:39)
[2020-12-31 19:56] VITALS: BP 124/82; TEMP 97.1; O2SAT 98
== END 2020-12-31 19:56 | disposition home or self-care (01) ==
LOC: ER 18:40
DX: S62.345A Nondisplaced fracture of base of fourth metacarpal bone, left hand, initial encounter for closed fracture (principal); J45.909 Unspecified asthma, uncomplicated; X50.9XXA Other and unspecified overexertion or strenuous movements or postures, initial encounter; Y93.K1 Activity, walking an animal; Z88.1 Allergy status to other antibiotic agents; Z88.2 Allergy status to sulfonamides; Y92.9 Unspecified place or not applicable